=== PATIENT | male | born 1960 | race Caucasian/White ===

== ENCOUNTER 2018-08-02 09:30 | Emergency (ER) | payer MEDICAID ==
[~2018-08-02] VITALS: Ht 165.1 cm; Wt 72.6 kg
[2018-08-02 09:52] VITALS: BP_SYST 150
[2018-08-02] MEDS ORDERED: KETOROLAC TROMETHAMINE 60 MG/2 ML VIAL IM ONE (12:15)
[2018-08-02 14:30] VITALS: BP_SYST 128
== END 2018-08-02 14:30 | disposition home or self-care (01) ==
LOC: SED 09:30
DX: R51 Headache (principal); E11.9 Type 2 diabetes mellitus without complications; I10 Essential (primary) hypertension; Z86.79 Personal history of other diseases of the circulatory system
CPT/HCPCS: 82962; 96372; 99283; J1885